=== PATIENT | female | born 1980 | race Caucasian/White ===

== ENCOUNTER 2016-10-11 22:51 | Emergency (ER) | payer SELFPAY ==
[~2016-10-11] VITALS: Ht 170.2 cm; Wt 74.6 kg
[2016-10-11 22:58] VITALS: TEMP 36.7; Ht 170.2 cm; Wt 74.6 kg
[2016-10-11] MEDS ORDERED: KETOROLAC TROMETHAMINE 60 MG/2 ML VIAL IM STA (23:38)
[2016-10-12] MEDS ORDERED: PRED50TA PO (00:22)
[2016-10-12 00:30] VITALS: BP 120/71; PULSE 82; O2SAT 98
--- NOTE | 2016-10-12 02:02 | EMERGENCY ROOM VISIT NOTE ---
History Report prepared by Silvia: Marcello Laboy Under the Supervision of: Dr. Vega Mascorro D.O. First contact with patient: 23:08 Chief Complaint: SHOULDER PAIN Stated Complaint: LEFT SHOULDER AND ARM PAIN History of Present Illness The patient is a 35 year old female who presents to the Emergency Room with complaints of constant left shoulder pain beginning 4 days ago. She currently rates her discomfort a 10/10 in severity. The patient states that her discomfort starts in her should and radiates down though her elbow and out her fingers. She reports that last week her elbow was bothering her, then it switched to her shoulder. The patient states that movement of her arm would increase her pain at first; now, she states it is constant. She denies playing tennis, golf, and cleaning her house or windows. The patient reports that she would at a fast food restaurant and has not been doing anything out of the ordinary. She states she has neck pain but denies weakness and numbness. The patient notes that she went to the [facility] and had an x-ray performed. She reports that she was told to follow up with her PCP and have an MRI performed, but she would not be able to get it until next week. The patient states that she asked if she should ice or heat it, but they did not have a straight answer. Source of History: patient Onset: 4 days ago Position: shoulder (left) Symptom Intensity: 10/10 Timing: constant Associated Symptoms: + neck pain, No weakness, No numbness Review of Systems See HPI for pertinent positives & negatives. A total of 10 systems reviewed and were otherwise negative. Family History Diabetes mellitus Social History Smoking Status: Current Every Day Smoker (1/2 pack per day) Alcohol Use: none Marital Status: in relationship Housing Status: lives with family Occupation Status: employed Current/Historical Medications Scheduled Prednisone (Prednisone), 50 MG PO DAILY Physical Exam Vital Signs Date Time Temp Pulse Resp B/P (MAP) Pulse Ox O2 Delivery O2 Flow Rate FiO2 10/12/16 00:30 82 18 120/71 98 10/11/16 22:58 36.7 119 20 138/78 96 Room Air Physical Exam GENERAL: Sitting up in bed, disheveled, holding left arm EYE EXAM: normal conjunctiva, PERRL and EOM's grossly intact OROPHARYNX: no exudate, no erythema, lips, buccal mucosa, and tongue normal and mucous membranes are moist NECK: supple, no nuchal rigidity, no adenopathy, acute reproducible tenderness on the left cervical paraspinal region going from the trapezius to shoulder LUNGS: Clear to auscultation. Normal chest wall mechanics HEART: no murmurs, S1 normal and S2 normal ABDOMEN: abdomen soft, non-tender, normo-active bowel sounds, no masses, no rebound or guarding. BACK: Back is symmetrical on inspection and there is no deformity, no midline tenderness, no CVA tenderness. SKIN: no rashes and no bruising UPPER EXTREMITIES: upper extremities are grossly normal. Tenderness from the shoulder to the dorsal aspect of elbow, flexion and extension of shoulder, elbow , and wrist with abduction of digits and grasp 5/5, bilaterally gross musculoskeletal intact, radial pulse 2/4, bicep reflex 2/4. Upper extremities equal in size bilaterally LOWER EXTREMITIES: No pitting edema. NEURO EXAM: Normal sensorium, cranial nerves II-XII intact, normal speech, no weakness of arms, no weakness of legs. Medical Decision & Procedures ER Provider Diagnostic Interpretation: CT:Per my review, radiologist interpretation. CT C SPINE: No acute fracture or dislocation. Straightening of the cervical spine may be due to muscle spasm or positioning. No high-grad spinal canal or neural foraminal osseous encroachment. No significant disc bulge appreciated by CT. However, if impingement is of high clinical concern, MRI is the modality of choice. Radiologist: Cuca Patterson M.D. Medications Administered Medications (Trade) Dose Ordered Sig/Edmundo Route Start Time Stop Time Status Last Admin Dose Admin Prednisone (PredniSONE TAB) 60 mg NOW STAT PO 10/11/16 23:19 10/11/16 23:21 DC 10/11/16 23:47 60 MG Ketorolac Tromethamine (Toradol Inj) 60 mg NOW STAT IM 10/11/16 23:38 10/11/16 23:39 DC 10/11/16 23:47 60 MG ED Course ED COURSE: Vital signs were reviewed and showed hypertension and tachycardia The patients medical record was reviewed The above diagnostic studies were performed and reviewed. ED treatments and interventions as stated above. 230: The patient was evaluated in room B04B. A complete history and physical examination was performed. 2319: Ordered Prednisone 60mg PO 2338: Ordered Toradol Inj 60mg IM 0031: Upon reevaluation, the patient is resting and in no distress. I discussed my findings with the patient and she understands and agrees with the treatment plan. Based on the patients age, coexisting illnesses, exam and lab findings the decision to treat as an outpatient was made. The patient remained stable while under my care. The patient appeared well at the time of discharge. Medical Decision Etiologies such as fracture, dislocation, neurovascular compromise, compartment syndrome, soft tissue injury, as well as others were entertained. Medication Reconciliation: I attest that I have personally reviewed the patient' s current medication list. Blood pressure screening: Patient was found to have an elevated blood pressure and was referred to their primary doctor for recheck and further treatment. Patient is a 35-year-old female who presents the ER for left-sided neck pain radiating into her left arm. She is completely neurologically intact. She does have pain on palpation. I do feel as though this is a component of muscular spasm and cervical radiculopathy. CT of the cervical spine was negative. She was updated in regards to findings. IM Toradol and oral steroids given. She is discharged follow-up with her primary care doctor for her cervical radiculopathy and muscle spasm. Discussed with Pt concerning signs and symptoms to watch out for. Pt was instructed to follow up with their PCP and discussed with the patient their option to return to the ED at anytime for persistent or worsening symptoms. The appropriate anticipatory guidance and out- patient management, including indications for return to the emergency department , were explained at length to the patient and understood. Impression Primary Impression: Cervical neuralgia Scribe Attestation The scribe's documentation has been prepared under my direction and personally reviewed by me in its entirety. I confirm that the note above accurately reflects all work, treatment, procedures, and medical decision making performed by me. Departure Information Dispostion Home / Self-Care Prescriptions Prednisone (PREDNISONE) 50 Mg Tab 50 MG PO DAILY for 5 Days, #5 TAB Prov: Vega Mascorro, DO 10/12/16 Referrals Jackie Londono PA-C (PCP) Forms HOME CARE DOCUMENTATION FORM, IMPORTANT VISIT INFORMATION Patient Instructions ED Cervical Radiculopathy, My [facility] Additional Instructions Please follow up with your primary care doctor with in the next 24 hours. Any worsening of your symptoms, please return to the ED immediately. This includes fevers greater than 100.4, weakness or numbness in the arm, or any other concerning signs or symptoms from your standpoint. Please continue Motrin or Tylenol and steroids as prescribed.
--- NOTE | 2016-10-12 07:40 | DIAGNOSTIC IMAGING REPORT ---
CT OF THE CERVICAL SPINE WITHOUT CONTRAST CLINICAL HISTORY: Neck pain with left-sided radiculopathy. COMPARISON STUDY: No previous studies for comparison. TECHNIQUE: Helical axial images of the cervical spine were obtained without IV contrast. Sagittal and coronal reconstructions were viewed. FINDINGS: There is straightening of the normal cervical lordosis. Alignment is otherwise anatomic. Vertebral body heights are maintained. There is no fracture or osseous lesion by CT. Central canal and neural foramen are suboptimally assessed by CT but no significant central canal stenosis is identified. Neural foramen are grossly patent by CT. There is no prevertebral edema. IMPRESSION: 1. No acute cervical spine fracture or subluxation. 2. Suboptimal evaluation of the central canal and neural foramen given CT technique but no definite abnormality identified. If persistent symptoms, an MRI could be obtained. Electronically signed by: Fabrizio Hernandez M.D. 10/12/2016 7:38 AM Dictated Date/Time: 10/12/2016 6:55 AM
== END 2016-10-12 00:31 | disposition home or self-care (01) ==
LOC: C.EDB 22:53
DX: M79.2 Neuralgia and neuritis, unspecified (principal); F17.200 Nicotine dependence, unspecified, uncomplicated; Z83.3 Family history of diabetes mellitus

== ENCOUNTER 2016-12-16 17:01 | Emergency (ER) | payer SELFPAY ==
[~2016-12-16] VITALS: Ht 172.7 cm; Wt 72.4 kg
[2016-12-16 17:04] VITALS: TEMP 36.8; Ht 172.7 cm; Wt 72.4 kg
[2016-12-16] MEDS ORDERED: ONDANSETRON INJ 2 MG/ML 2 ML VIAL IV STA (17:17)
[2016-12-16] MEDS ORDERED: KETOROLAC TROMETHAMINE 30 MG/ML VIAL IV STA (17:17)
[2016-12-16 17:52] LABS: BASO % 0.4 %; BASO ABS # 0.02 K/uL (0-0.2); COMPLETE YES; HEMATOCRIT 38.3 % (37-47); IG% 0.2 %; LYMPH % 29.2 %; LYMPH ABS # 1.49 K/uL (1.2-3.4); MEAN CELL VOLUME 82.4 fL (80-100); MEAN CORPUSCULAR HEMOGLOBIN 27.1 pg (25-34); MEAN CORPUSCULAR HGB CONC 32.9 g/dl (32-36); MEAN PLATELET VOLUME 9.5 fL (7.4-10.4); MONO % 7.3 %; NEUT % 61.9 %; PLATELET COUNT 238 K/uL (130-400); RED BLOOD COUNT 4.65 M/uL (4.2-5.4)
[2016-12-16 18:06] LABS: BLOOD UREA NITROGEN 10 mg/dl (7-18); CALCIUM 8.6 mg/dl (8.5-10.1); CARBON DIOXIDE 30 mmol/L (21-32); CHLORIDE 108 mmol/L (98-107); CREATININE 0.65 mg/dl (0.60-1.20); GLUCOSE 96 mg/dl (70-99); POTASSIUM 3.1 mmol/L (3.5-5.1); SODIUM 143 mmol/L (136-145)
[2016-12-16] MEDS ORDERED: CITA10TA8 PO (18:12)
--- NOTE | 2016-12-16 18:38 | DIAGNOSTIC IMAGING REPORT ---
CHEST ONE VIEW PORTABLE HISTORY: Atypical Chest Pain COMPARISON: None. FINDINGS: The lungs are clear. Cardiac silhouette is normal in size. No pleural effusions. No pneumothorax. IMPRESSION: No acute process. Electronically signed by: Dylon Cowan M.D. 12/16/2016 6:36 PM Dictated Date/Time: 12/16/2016 6:35 PM
[2016-12-16] MEDS ORDERED: POTASSIUM CHLORIDE 10 MEQ TABCR PO STA (18:41)
[2016-12-16 19:15] VITALS: BP 103/63; PULSE 66; O2SAT 97
--- NOTE | 2016-12-16 20:40 | EMERGENCY ROOM VISIT NOTE ---
History Report prepared by Silvia: Anthony Gordon Under the Supervision of: Dr. Vega Mascorro D.O. First contact with patient: 17:07 Chief Complaint: CHEST PAIN Stated Complaint: THROAT,NECK AND CHEST PAIN History of Present Illness The patient is a 36 year old female who presents to the Emergency Room with complaints of worsening chest pain that began last night. She rates her pain an 8/10 in severity. She notes that she has been experience pain along her clavicles and sternum for the past week, but it has worsened into her whole neck , shooting up to her ears. She denies any trauma to the area. She is able to swallow. She denies any shortness of breath, arm pain, or jaw pain. This has never happened to her before. Pressing on the area exacerbates her pain. She denies any history of blood clots, recent surgeries, recent travel, control, or left lower extremity swelling. She is also experiencing left upper shoulder pain which is fairly chronic and normal for her. She is nauseated. She denies any vomiting or diarrhea. No history of diabetes, hypertension, hyperlipidemia, or CAD. Source of History: patient Onset: yesterday Position: neck Symptom Intensity: 8/10 Quality: pressure Timing: worsening Modifying Factors (Worsening): other (Palpation) Associated Symptoms: + chest pain (sternum and clavicles), + nausea, + back pain, No SOB, No vomiting, No diarrhea Note: She denies any lower extremity edema. Review of Systems See HPI for pertinent positives & negatives. A total of 10 systems reviewed and were otherwise negative. Family History Diabetes mellitus Social History Smoking Status: Current Every Day Smoker Alcohol Use: none Drug Use: none Marital Status: in relationship Housing Status: lives with family Occupation Status: employed Current/Historical Medications Scheduled Citalopram Hydrobromide (Celexa), 1 TAB PO DAILY Allergies Coded Allergies: Venlafaxine (Unverified Allergy, Unknown, shakes, 12/16/16) Physical Exam Vital Signs Date Time Temp Pulse Resp B/P (MAP) Pulse Ox O2 Delivery O2 Flow Rate FiO2 12/16/16 19:15 66 16 103/63 97 12/16/16 18:25 75 18 114/74 97 Room Air 12/16/16 17:04 36.8 110 20 120/83 98 Room Air Physical Exam GENERAL: alert, well appearing, well nourished, no distress, non-toxic, sitting up in bed EYE EXAM: normal conjunctiva OROPHARYNX: no exudate, no erythema, lips, buccal mucosa, and tongue normal and mucous membranes are moist. Able to tolerate secretions, swallows without difficulty NECK: supple, no nuchal rigidity, no adenopathy, non-tender LUNGS: Clear to auscultation. Normal chest wall mechanics HEART: no murmurs, S1 normal and S2 normal CHEST: Acute reproducible tenderness over the anterior sternum up to the sternal notch and the bilateral clavicles. ABDOMEN: abdomen soft, non-tender, normo-active bowel sounds, no masses, no rebound or guarding. BACK: Back is symmetrical on inspection and there is no deformity. Reproducible tenderness over the upper left scaphoid tracking to the upper left neck and trapezius. SKIN: no rashes and no bruising UPPER EXTREMITIES: upper extremities are grossly normal. LOWER EXTREMITIES: No pitting edema. NEURO EXAM: Normal sensorium, cranial nerves II-XII grossly intact, normal speech, no gross weakness of arms. Medical Decision & Procedures ER Provider Diagnostic Interpretation: Radiology results as stated below per my review and the radiologist's interpretation: CHEST ONE VIEW PORTABLE HISTORY: Atypical Chest Pain COMPARISON: None. FINDINGS: The lungs are clear. Cardiac silhouette is normal in size. No pleural effusions. No pneumothorax. IMPRESSION: No acute process. Electronically signed by: Dylon Cowan M.D. 12/16/2016 6:36 PM Dictated Date/Time: 12/16/2016 6:35 PM Laboratory Results 12/16/16 17:40 Red Blood Count 4.65, Mean Corpuscular Volume 82.4, Mean Corpuscular Hemoglobin 27.1, Mean Corpuscular Hemoglobin Concent 32.9, Mean Platelet Volume 9.5, Neutrophils (%) (Auto) 61.9, Lymphocytes (%) (Auto) 29.2, Monocytes (%) (Auto) 7.3, Eosinophils (%) (Auto) 1.0, Basophils (%) (Auto) 0.4, Neutrophils # (Auto) 3.16, Lymphocytes # (Auto) 1.49, Monocytes # (Auto) 0.37, Eosinophils # (Auto) 0.05, Basophils # (Auto) 0.02 12/16/16 17:40 Test 12/16/16 17:40 White Blood Count 5.10 K/uL (4.8-10.8) Red Blood Count 4.65 M/uL (4.2-5.4) Hemoglobin 12.6 g/dL (12.0-16.0) Hematocrit 38.3 % (37-47) Mean Corpuscular Volume 82.4 fL (80-100) Mean Corpuscular Hemoglobin 27.1 pg (25-34) Mean Corpuscular Hemoglobin Concent 32.9 g/dl (32-36) Platelet Count 238 K/uL (130-400) Mean Platelet Volume 9.5 fL (7.4-10.4) Neutrophils (%) (Auto) 61.9 % Lymphocytes (%) (Auto) 29.2 % Monocytes (%) (Auto) 7.3 % Eosinophils (%) (Auto) 1.0 % Basophils (%) (Auto) 0.4 % Neutrophils # (Auto) 3.16 K/uL (1.4-6.5) Lymphocytes # (Auto) 1.49 K/uL (1.2-3.4) Monocytes # (Auto) 0.37 K/uL (0.11-0.59) Eosinophils # (Auto) 0.05 K/uL (0-0.5) Basophils # (Auto) 0.02 K/uL (0-0.2) RDW Standard Deviation 44.3 fL (36.4-46.3) RDW Coefficient of Variation 14.8 % (11.5-14.5) Immature Granulocyte % (Auto) 0.2 % Immature Granulocyte # (Auto) 0.01 K/uL (0.00-0.02) Anion Gap 5.0 mmol/L (3-11) Est Creatinine Clear Calc Drug Dose 120.7 ml/min Estimated GFR () 132.4 Estimated GFR (Non- 114.2 BUN/Creatinine Ratio 16.0 (10-20) Calcium Level 8.6 mg/dl (8.5-10.1) Total Creatine Kinase 65 U/L (26-192) Creatine Kinase MB < 0.5 ng/ml (0.5-3.6) Creatine Kinase MB Ratio (0-3.0) Troponin I < 0.015 ng/ml (0-0.045) Laboratory results per my review. Medications Administered Medications (Trade) Dose Ordered Sig/Edmundo Route Start Time Stop Time Status Last Admin Dose Admin Ketorolac Tromethamine (Toradol Inj) 30 mg NOW STAT IV 12/16/16 17:17 12/16/16 17:18 DC 12/16/16 18:00 30 MG Ondansetron HCl (Zofran Inj) 4 mg NOW STAT IV 12/16/16 17:17 12/16/16 17:18 DC 12/16/16 18:00 4 MG Potassium Chloride (Klor-Con M10) 10 meq NOW STAT PO 12/16/16 18:41 12/16/16 18:42 DC 12/16/16 19:11 10 MEQ ECG Indication: chest pain Rate (beats per minute): 76 Rhythm: sinus rhythm Findings: no acute ischemic change, no ectopy, other (Normal axis) ED Course ED COURSE: Vital signs were reviewed and showed tachycardia. The patients medical record was reviewed The above diagnostic studies were performed and reviewed. ED treatments and interventions as stated above. 1707: The patient was evaluated in room A4. A complete history and physical examination was performed. 1717: Ordered Zofran Inj 4 mg IV, Toradol Inj 30 mg IV 1841: Ordered Potassium Chloride 10 meq PO 1900: Upon reevaluation, the patient is resting. I discussed my findings with the patient and she understands and agrees with the treatment plan. The patient remained stable while under my care. The patient appeared well at the time of discharge. Medical Decision Differential diagnoses includes but is not limited to acute coronary syndrome, myocardial infarction, pericarditis, pulmonary embolus, aortic dissection, pneumonia, pneumothorax, musculoskeletal, shingles, esophageal. Patient is a 36 her old female who present to the ER for upper chest pain which is been present for the past several days and has worsened last night. Pain is reproducible on exam. It does radiate up into her neck. EKG was unremarkable. Labs were remarkable for mild hypokalemia. Negative troponin with pain present for greater than 8 hours. She is a low risk for cardiac issues. Her pain is reproducible. She was given Toradol. She has no trouble breathing or trouble swallowing. I do not believe that this is GI in nature. I favor costochondritis. Patient was discharged to follow-up with PCP. Discussed with Pt concerning signs and symptoms to watch out for. Pt was instructed to follow up with their PCP and discussed with the patient their option to return to the ED at anytime for persistent or worsening symptoms. The appropriate anticipatory guidance and out-patient management, including indications for return to the emergency department, were explained at length to the patient and understood. Medication Reconcilliation Current Medication List: was personally reviewed by me Blood Pressure Screening Patient's blood pressure: Normal blood pressure Blood pressure disposition: Did not require urgent referral Impression Primary Impression: Chest wall pain Additional Impression: Hypokalemia Scribe Attestation The scribe's documentation has been prepared under my direction and personally reviewed by me in its entirety. I confirm that the note above accurately reflects all work, treatment, procedures, and medical decision making performed by me. Departure Information Dispostion Home / Self-Care Referrals Jackie Londono PA-C Forms Call Back Authorization, HOME CARE DOCUMENTATION FORM, IMPORTANT VISIT INFORMATION Patient Instructions ED Chest Pain [place], My [facility] Additional Instructions Please follow up with your primary care doctor or if you are a student, [facility] with in the next 24 hours. Any worsening of your symptoms, please return to the ED immediately. This includes any fevers greater than 100.4, worsening pain, chest pain, shortness breath, persistent nausea, vomiting, unable to eat or drink, or any other concerning signs or symptoms from your standpoint. Problem Qualifiers
== END 2016-12-16 19:15 | disposition home or self-care (01) ==
LOC: C.EDB 17:02 → C.EDA 19:15
DX: R07.89 Other chest pain (principal); E87.6 Hypokalemia; F17.200 Nicotine dependence, unspecified, uncomplicated; Z88.8 Allergy status to other drugs, medicaments and biological substances